=== PATIENT | female | born 1985 | race Hispanic/Latino ===

== ENCOUNTER 2018-08-06 07:36 | Emergency (ER) | payer SELFPAY ==
[2018-08-06 08:31] LABS: EOSINOPHILS % (AUTO) 4.8 % (0.0-8.0); HEMATOCRIT 41.5 % (36-48); MEAN CORPUSCULAR HEMOGLOBIN 30.6 pg (27.0-33.0); MEAN CORPUSCULAR HGB CONC 34.1 g/dL (32.0-36.0); MEAN CORPUSCULAR VOLUME 89.6 fL (79-99); MONOCYTES % (AUTO) 6.9 % (3.0-13.0); NEUTROPHILS % (AUTO) 65.3 % (40.0-77.0); NUCLEATED RED BLOOD CELLS 0.1 % (0.0-0.19); PLATELET COUNT (AUTO) 261 K/uL (130-400); RED BLOOD CELL COUNT(AUTO) 4.64 MIL/uL (4.00-5.50)
[2018-08-06 08:32] LABS: APPEARANCE,URINE Cloudy (CLEAR); BILIRUBIN,URINE Negative (NEGATIVE); COLOR,URINE Yellow (YELLOW); GLUCOSE, URINE (UA) Negative (NEGATIVE); KETONES,URINE Negative (NEGATIVE); LEUKOCYTE ESTERASE ,URINE Large (NEGATIVE); NITRATE,URINE Negative (NEGATIVE); OCCULT BLOOD,URINE Large (NEGATIVE); PROTEIN,URINE Negative (NEGATIVE); UROBILINOGEN,URINE 0.2 mg/dL (0.2-1.0)
[2018-08-06 08:39] LABS: BACTERIA,URINE Rare /HPF (None Seen); CREATININE 0.7 mg/dL (0.5-1.5); POTASSIUM 4.1 mmol/L (3.5-5.1); SQUAMOUS EPITHELIAL CELL,UR Rare /HPF (0-2); TRICHOMONAS,URINE Moderate /LPF (None Seen)
[2018-08-06 08:43] LABS: ALBUMIN 3.6 g/dL (3.5-5.0); BILIRUBIN,TOTAL 0.3 mg/dL (0.2-1.0); TOTAL PROTEIN, SERUM 7.6 g/dL (6.0-8.3)
[2018-08-06 08:45] LABS: HCG,QUAL RESULT NEGATIVE (NEGATIVE)
[2018-08-06] MEDS ORDERED: ONDANSETRON HCL 4 MG/2 ML VIAL ONE (10:04)
[2018-08-06] MEDS ORDERED: HYOSCYAMINE SULFATE 0.125 MG TAB.SUBL SL ONE (10:05)
== END 2018-08-06 10:39 | disposition home or self-care (01) ==
LOC: EDH 07:36
DX: K80.20 Calculus of gallbladder without cholecystitis without obstruction (principal); R03.0 Elevated blood-pressure reading, without diagnosis of hypertension
CPT/HCPCS: 36415; 76705; 80053; 81001; 81025; 82150; 83690; 85025; 87077; 87088; 87186; 96374; 99284; J2405

== ENCOUNTER 2019-05-23 14:22 | Emergency (ER) | payer SELFPAY ==
[2019-05-23 14:58] LABS: BASOPHILS % (AUTO) 0.5 % (0.0-5.0); EOSINOPHILS % (AUTO) 0.8 % (0.0-8.0); HEMATOCRIT 42.2 % (36-48); LYMPHOCYTES % (AUTO) 15.2 % (21.0-51.0); MEAN CORPUSCULAR HEMOGLOBIN 30.4 pg (27.0-33.0); MEAN CORPUSCULAR VOLUME 89.4 fL (79-99); MONOCYTES % (AUTO) 8.1 % (3.0-13.0); NEUTROPHILS % (AUTO) 75.4 % (40.0-77.0); PLATELET COUNT (AUTO) 269 K/uL (130-400); RED BLOOD CELL COUNT(AUTO) 4.72 MIL/uL (4.00-5.50); RED CELL DISTRIBUTION WIDTH 14.4 % (11.0-15.5); WHITE BLOOD COUNT (AUTO) 9.8 K/uL (4.8-10.8)
[2019-05-23 15:09] LABS: CREATININE 0.9 mg/dL (0.5-1.5); POTASSIUM 3.6 mmol/L (3.5-5.1)
[2019-05-23 15:14] LABS: ALBUMIN 3.7 g/dL (3.5-5.0); BILIRUBIN,TOTAL 0.5 mg/dL (0.2-1.0); TOTAL PROTEIN, SERUM 7.9 g/dL (6.0-8.3)
[2019-05-23] MEDS ORDERED: ONDANSETRON HCL 4 MG/2 ML VIAL ONE (15:46)
[2019-05-23] MEDS ORDERED: MORPHINE SULFATE 4 MG/1ML SYG ONE (15:46)
[2019-05-23] MEDS ORDERED: FAMOTIDINE/PF 20 MG/2 ML VIAL IV ONE (15:47)
[2019-05-23] MEDS ORDERED: SODIUM CHLORIDE 0.9% 1000ML 1,000 ML IV ONE (15:47)
[2019-05-23 16:07] LABS: APPEARANCE,URINE CLOUDY (CLEAR); BILIRUBIN,URINE MODERATE (NEGATIVE); COLOR,URINE YELLOW (YELLOW); GLUCOSE, URINE (UA) NEGATIVE (NEGATIVE); KETONES,URINE 40 mg/dL (NEGATIVE); LEUKOCYTE ESTERASE ,URINE SMALL (NEGATIVE); NITRATE,URINE NEGATIVE (NEGATIVE); OCCULT BLOOD,URINE NEGATIVE (NEGATIVE); PROTEIN,URINE 30 mg/dL (NEGATIVE)
[2019-05-23 16:15] LABS: HCG,QUAL RESULT NEGATIVE (NEGATIVE)
[2019-05-23 16:17] LABS: BACTERIA,URINE Few /HPF (None Seen); MUCUS,URINE Moderate LPF (None Seen); RBC,URINE 0-1 /HPF (0-1); SQUAMOUS EPITHELIAL CELL,UR Many /HPF (0-2); TRICHOMONAS,URINE Few /LPF (None Seen)
[2019-05-23] MEDS ORDERED: KETOROLAC TROMETHAMINE 30MG/ML ONE (17:02)
== END 2019-05-23 18:34 | disposition home or self-care (01) ==
LOC: EDH 14:22 → EEVIPCON 14:22 → EDH 18:34
DX: K80.50 Calculus of bile duct without cholangitis or cholecystitis without obstruction (principal); R11.2 Nausea with vomiting, unspecified
CPT/HCPCS: 36415; 80053; 81001; 81025; 82150; 83690; 85025; 96361; 96374; 96375; 99284; J1885; J2270; J2405; J3490; J7030

== ENCOUNTER 2019-08-21 17:47 | Emergency (ER) | payer OTHER ==
[2019-08-21] MEDS ORDERED: DEXAMETHASONE SOD PHOSPHATE 10MG/ML 1ML VIAL ONE (19:28)
== END 2019-08-21 20:29 | disposition home or self-care (01) ==
LOC: EDH 17:47
DX: J11.1 Influenza due to unidentified influenza virus with other respiratory manifestations (principal); J18.9 Pneumonia, unspecified organism
CPT/HCPCS: 71046; 87804 ×2; 96372; 99285; J1100

== ENCOUNTER 2019-10-22 15:29 | Inpatient (IN) | payer SELFPAY ==
[~2019-10-22] VITALS: Ht 165.1 cm; Wt 111.1 kg
[2019-10-22] MEDS ORDERED: ACETAMINOPHEN 325 MG TAB ONE (16:25)
[2019-10-22] MEDS ORDERED: SODIUM CHLORIDE 0.9% 1000ML 1,000 ML IV ONE (16:43)
[2019-10-22] MEDS ORDERED: ONDANSETRON HCL 4 MG/2 ML VIAL ONE (16:44)
[2019-10-22 16:48] LABS: BASOPHILS % (AUTO) 0.3 % (0.0-5.0); EOSINOPHILS % (AUTO) 0.6 % (0.0-8.0); HEMATOCRIT 36.5 % (36-48); LYMPHOCYTES % (AUTO) 6.5 % (21.0-51.0); MEAN CORPUSCULAR HEMOGLOBIN 26.9 pg (27.0-33.0); MEAN CORPUSCULAR HGB CONC 31.8 g/dL (32.0-36.0); MEAN CORPUSCULAR VOLUME 84.5 fL (79-99); MONOCYTES % (AUTO) 11.2 % (3.0-13.0); NEUTROPHILS % (AUTO) 80.9 % (40.0-77.0); PLATELET COUNT (AUTO) 260 K/uL (130-400); RED BLOOD CELL COUNT(AUTO) 4.32 MIL/uL (4.00-5.50); RED CELL DISTRIBUTION WIDTH 14.5 % (11.0-15.5); WHITE BLOOD COUNT (AUTO) 16.9 K/uL (4.8-10.8)
[2019-10-22 16:59] LABS: APPEARANCE,URINE Cloudy (CLEAR); BILIRUBIN,URINE Negative (NEGATIVE); COLOR,URINE Dark Yellow (YELLOW); GLUCOSE, URINE (UA) Negative (NEGATIVE); KETONES,URINE >=80 mg/dL (NEGATIVE); LEUKOCYTE ESTERASE ,URINE Moderate (NEGATIVE); NITRATE,URINE Positive (NEGATIVE); OCCULT BLOOD,URINE Large (NEGATIVE); PH,URINE 5.5 (5.0-8.0); PROTEIN,URINE POS 2+ mg/dL (NEGATIVE)
[2019-10-22 17:00] LABS: POTASSIUM 3.2 mmol/L (3.5-5.1)
[2019-10-22 17:02] LABS: HCG,QUAL RESULT NEGATIVE (NEGATIVE)
[2019-10-22 17:05] LABS: ALBUMIN 3.1 g/dL (3.5-5.0); BILIRUBIN,TOTAL 0.5 mg/dL (0.2-1.0); TOTAL PROTEIN, SERUM 7.7 g/dL (6.0-8.3)
[2019-10-22 17:13] LABS: RAPID GROUP A STREP NEGATIVE (NEGATIVE)
[2019-10-22] MEDS ORDERED: CEFTRIAXONE SODIUM 1 GM ONE (17:19)
[2019-10-22 17:23] LABS: BACTERIA,URINE Moderate /HPF (None Seen); MUCUS,URINE Few LPF (None Seen)
[2019-10-22] MEDS: POTASSIUM CHLORIDE 20 MEQ ERTAB PO SCH (19:30)
[2019-10-22] MEDS ORDERED: SODIUM CHLORIDE 0.9% 1000ML 1,000 ML IV SCH (19:30)
[2019-10-22] MEDS ORDERED: NITROGLYCERIN 0.4 MG SL TAB SL PRN (19:30)
[2019-10-22] MEDS ORDERED: DIPHENHYDRAMINE HCL 25 MG CAPSULE PO PRN (19:30)
[2019-10-22] MEDS ORDERED: ONDANSETRON HCL 4 MG/2 ML VIAL IV PRN (19:30)
[2019-10-22] MEDS ORDERED: IBUPROFEN 200 MG TAB ONE (20:16)
[2019-10-22] MEDS ORDERED: IBUPROFEN 400 MG TABLET ONE (20:16)
[2019-10-22] MEDS ORDERED: POTASSIUM BICARB/CIT AC 25 MEQ TABLET.EFF ONE (20:20)
[2019-10-22] MEDS: FAMOTIDINE/PF 20 MG/2 ML VIAL IV SCH (21:00)
[2019-10-22] MEDS ORDERED: FAMOTIDINE/PF 20 MG/2 ML VIAL IV ONE (21:13)
[2019-10-22] MEDS ORDERED: SODIUM CHLORIDE 0.9% 1000ML 2,000 ML IV ONE (21:13)
[2019-10-22] MEDS ORDERED: IOHEXOL 350 MG/ML 100ML INFUS..BTL IV ONE (22:40)
[2019-10-22 23:15] VITALS: BP 134/76
[2019-10-22 23:25] LABS: CRP QUANTITATIVE 205.5 mg/L (0.00-9.0)
[2019-10-22] MEDS: SODIUM CHLORIDE 0.9% 1000ML 1,000 ML IV SCH (23:54)
[2019-10-23 04:00] VITALS: BP 166/98
[2019-10-23] MEDS ORDERED: PHARMACY COMMUNICATION MISC SCH (04:45)
[2019-10-23] MEDS: SODIUM CHLORIDE 0.9% 1000ML 1,000 ML IV SCH ×2 (05:08→20:27)
[2019-10-23 05:29] LABS: HEMATOCRIT 30.8 % (36-48); MEAN CORPUSCULAR HEMOGLOBIN 26.7 pg (27.0-33.0); MEAN CORPUSCULAR HGB CONC 31.5 g/dL (32.0-36.0); MEAN CORPUSCULAR VOLUME 84.8 fL (79-99); PLATELET COUNT (AUTO) 200 K/uL (130-400); RED BLOOD CELL COUNT(AUTO) 3.63 MIL/uL (4.00-5.50); RED CELL DISTRIBUTION WIDTH 14.7 % (11.0-15.5); WHITE BLOOD COUNT (AUTO) 11.2 K/uL (4.8-10.8)
[2019-10-23 05:33] LABS: ALBUMIN 2.4 g/dL (3.5-5.0); BILIRUBIN,TOTAL 0.5 mg/dL (0.2-1.0); CREATININE 0.7 mg/dL (0.5-1.5); MAGNESIUM 1.8 mg/dL (1.80-2.40); POTASSIUM 3.4 mmol/L (3.5-5.1); TOTAL PROTEIN, SERUM 6.1 g/dL (6.0-8.3)
[2019-10-23] MEDS ORDERED: LIDOCAINE HCL-MPF 1% 2ML VIAL IV PRN (06:00)
[2019-10-23] MEDS ORDERED: POTASSIUM CHLORIDE 20MEQ/100ML 100 ML IV PRN (06:00)
[2019-10-23] MEDS ORDERED: POTASSIUM CHLORIDE 20 MEQ ERTAB PO PRN (06:00)
[2019-10-23] MEDS ORDERED: POTASSIUM CHLORIDE 10% ELIXIR 20 MEQ/15 ML UDCUP PO PRN (06:00)
[2019-10-23 06:11] LABS: BAND NEUTROPHILS % (MANUAL) 10 % (0-2); LYMPHOCYTES % (MANUAL) 6 % (22-44); MONOCYTES % (MANUAL) 4 % (2-9); SEGMENTED NEUTROPHILS % 80 % (40-70)
[2019-10-23 06:12] LABS: MAN.DIFF COMMENT-IMPRESSION MANUAL DIFFERENTIAL; PLATELET MORPHOLOGY COMMENT ADEQUATE
[2019-10-23 07:33] VITALS: BP 147/80
[2019-10-23] MEDS ORDERED: CEFTRIAXONE SODIUM 1 GM IV SCH (09:00)
--- NOTE | 2019-10-23 09:30 | NUR ---
DR. MADRIGAL CONSULT IN PLACE. RETURNED CALL.
[2019-10-23] MEDS: FAMOTIDINE/PF 20 MG/2 ML VIAL IV SCH ×2 (09:54→20:27)
[2019-10-23] MEDS: ZOSYN 3.375GM+NS 50ML 50 ML IV SCH ×3 (09:56→20:27)
[2019-10-23] MEDS: ACETAMINOPHEN 325 MG TAB PO PRN ×3 (09:57→20:31)
[2019-10-23 12:07] VITALS: BP 134/88
--- NOTE | 2019-10-23 13:59 | NUR ---
DR. JESSICA RETURNED CALL, LABS, IMAGING REPORT GIVEN, MAY SEE HER LATER TODAY OR EVEN IN AM BUT STATES IS ON RIGHT MEDS.
[2019-10-23] MEDS: MORPHINE SULFATE 2 MG/ML 1ML SYG IVP PRN (15:45)
[2019-10-23] MEDS: ENOXAPARIN SODIUM 30 MG/0.3 ML SQ SCH (15:46)
[2019-10-23 16:58] VITALS: BP 131/79
--- NOTE | 2019-10-23 18:08 | NUR ---
D/C PLAN CM spoke to pt regarding d/c planning. Pt is ind. and lives with children. CM provided community resources packet. Plan to home. No needs verbalized or identified. CM to f/u. Addendum: 10/23/19 at 1809 by SIMRAN DUBOSE CM Amended: Links added.
[2019-10-23] MEDS: POTASSIUM CHLORIDE 20 MEQ ERTAB PO SCH (19:30)
[2019-10-23 19:33] VITALS: BP 144/88
[2019-10-23 23:36] VITALS: BP 148/99
[2019-10-24] MEDS: SODIUM CHLORIDE 0.9% 1000ML 1,000 ML IV SCH ×3 (01:46→21:42)
[2019-10-24 03:46] VITALS: BP 150/96
[2019-10-24] MEDS: ACETAMINOPHEN 325 MG TAB PO PRN ×3 (03:47→22:03)
[2019-10-24] MEDS: ZOSYN 3.375GM+NS 50ML 50 ML IV SCH ×2 (03:49→12:55)
[2019-10-24 05:57] LABS: BASOPHILS % (AUTO) 0.3 % (0.0-5.0); EOSINOPHILS % (AUTO) 0.5 % (0.0-8.0); HEMATOCRIT 31.6 % (36-48); MEAN CORPUSCULAR HEMOGLOBIN 27.1 pg (27.0-33.0); MEAN CORPUSCULAR HGB CONC 31.6 g/dL (32.0-36.0); MEAN CORPUSCULAR VOLUME 85.6 fL (79-99); MONOCYTES % (AUTO) 17.1 % (3.0-13.0); NEUTROPHILS % (AUTO) 68.6 % (40.0-77.0); PLATELET COUNT (AUTO) 236 K/uL (130-400); RED BLOOD CELL COUNT(AUTO) 3.69 MIL/uL (4.00-5.50); RED CELL DISTRIBUTION WIDTH 14.6 % (11.0-15.5); WHITE BLOOD COUNT (AUTO) 9.1 K/uL (4.8-10.8)
[2019-10-24 06:22] LABS: CREATININE 0.8 mg/dL (0.5-1.5); POTASSIUM 3.9 mmol/L (3.5-5.1)
[2019-10-24 08:00] VITALS: BP 158/99
[2019-10-24] MEDS: MORPHINE SULFATE 2 MG/ML 1ML SYG IVP PRN (09:08)
[2019-10-24] MEDS: FAMOTIDINE/PF 20 MG/2 ML VIAL IV SCH ×2 (09:08→21:29)
--- NOTE | 2019-10-24 10:20 | NUR ---
DR. FALL SPOKE TO MD VIA TELEPHONE. INFORMED MD OF PRELIMINARY URINE CULTURE RESULTS, ANTIBIOTIC, ELEVATED TEMPERATURE TRENDS THE PAS [address] FALL STATES THAT IT APPEARS PATIENT HAS PYELONEPHRITIS AND THAT PATIENT IS ON CURRENT ANTIBIOTICS AT THIS TIME. ALSO STATES SHE WOULD BE IN TO SEE PATIENT LATER TODAY.
[2019-10-24 10:50] VITALS: BP 143/96
[2019-10-24 15:09] VITALS: BP 158/99
[2019-10-24] MEDS: MEROPENEM 1 GM VIAL IVP SCH (18:36)
[2019-10-24] MEDS: ENOXAPARIN SODIUM 30 MG/0.3 ML SQ SCH (18:36)
[2019-10-24] MEDS: POTASSIUM CHLORIDE 20 MEQ ERTAB PO SCH (19:30)
[2019-10-24 20:17] VITALS: BP 139/97
[2019-10-24 23:38] VITALS: BP 148/85
[2019-10-25] VITALS (7 sets, daily range): BP systolic 130–161; BP diastolic 80–113
[2019-10-25] MEDS: MEROPENEM 1 GM VIAL IVP SCH ×3 (01:41→18:13)
[2019-10-25] MEDS: FAMOTIDINE/PF 20 MG/2 ML VIAL IV SCH ×2 (10:12→21:55)
[2019-10-25] MEDS ORDERED: AMLODIPINE BESYLATE 5 MG TAB PO SCH (14:15)
[2019-10-25] MEDS: ACETAMINOPHEN 325 MG TAB PO PRN (14:39)
[2019-10-25] MEDS: SODIUM CHLORIDE 0.9% 1000ML 1,000 ML IV SCH ×2 (14:43→17:28)
[2019-10-25] MEDS: ENOXAPARIN SODIUM 30 MG/0.3 ML SQ SCH (18:14)
[2019-10-26] MEDS: MEROPENEM 1 GM VIAL IVP SCH ×2 (02:55→10:18)
[2019-10-26] MEDS: SODIUM CHLORIDE 0.9% 1000ML 1,000 ML IV SCH ×2 (03:05→13:28)
[2019-10-26 03:38] VITALS: BP 154/89
[2019-10-26 06:31] LABS: BASOPHILS % (AUTO) 0.7 % (0.0-5.0); EOSINOPHILS % (AUTO) 3.7 % (0.0-8.0); HEMATOCRIT 31.6 % (36-48); LYMPHOCYTES % (AUTO) 31.9 % (21.0-51.0); MEAN CORPUSCULAR HEMOGLOBIN 27.1 pg (27.0-33.0); MEAN CORPUSCULAR HGB CONC 32.3 g/dL (32.0-36.0); MEAN CORPUSCULAR VOLUME 83.8 fL (79-99); MONOCYTES % (AUTO) 9.7 % (3.0-13.0); NEUTROPHILS % (AUTO) 53.5 % (40.0-77.0); PLATELET COUNT (AUTO) 310 K/uL (130-400); RED BLOOD CELL COUNT(AUTO) 3.77 MIL/uL (4.00-5.50); RED CELL DISTRIBUTION WIDTH 14.6 % (11.0-15.5); WHITE BLOOD COUNT (AUTO) 7.3 K/uL (4.8-10.8)
[2019-10-26 06:38] LABS: CREATININE 0.7 mg/dL (0.5-1.5)
[2019-10-26 08:00] VITALS: BP 148/103
[2019-10-26] MEDS ORDERED: AMLODIPINE BESYLATE 5 MG TAB PO SCH ×2 (09:00→13:30)
[2019-10-26] MEDS: FAMOTIDINE/PF 20 MG/2 ML VIAL IV SCH (10:17)
[2019-10-26 12:00] VITALS: BP 156/100
[2019-10-26] MEDS ORDERED: CEPH500B PO (14:02)
[2019-10-26] MEDS ORDERED: AMLO10TA7 PO (14:02)
--- NOTE | 2019-10-26 14:54 | NUR ---
PATIENT GIVEN DISCHARGE INSTRUCTIONS, AND VERBALIZED UNDERSTANDING, REVIEWED MEDICATIONS , NEED TO FIND A PRIMARY PHYSICIAN ( LIST OF PHYSICIAN GIVEN). IV REMOVED WITH CATHETER INTACT AND SITE DRESSED, PATIENT DENIES PAIN AT THIS TIME, WORK EXCUSE GIVEN , PATIENT CLEAR TO RETURN TO WORK ON ThursdayOctober. NO QUESTIONS OR CONCERNS AT THIS TIME PATIENT TAKING BY WHEELCHAIR TO ER LOBBY WITH FRIEND AT SIDE
[2019-10-27] MEDS ORDERED: AMLODIPINE BESYLATE 5 MG TAB PO SCH (09:00)
== END 2019-10-26 15:00 | disposition home or self-care (01) | DRG 872 ==
LOC: EDH 15:29 → EDHIP 15:30 → EDH 16:53 → 3AH 23:45
PROVIDERS: ADMIT Hospitalist; ATTEND Hospitalist
DX: A41.51 Sepsis due to Escherichia coli [E. coli] (principal); E87.1 Hypo-osmolality and hyponatremia; N13.6 Pyonephrosis; Z68.41 Body mass index [BMI] 40.0-44.9, adult; E66.01 Morbid (severe) obesity due to excess calories; E87.6 Hypokalemia; I10 Essential (primary) hypertension
CPT/HCPCS: 36415; 74176; 80048; 80053; 81001; 81025; 83605; 83735; 84145; 85025; 85651; 86140; 87040; 87077; 87088; 87186; 87804; 87880; G0378; J0696; J1650; J2185; J2405; J2543; J3490; J7030; Q9967

== ENCOUNTER 2021-11-07 13:09 | Emergency (ER) | payer OTHER ==
[~2021-11-07] VITALS: Ht 170.2 cm; Wt 127.0 kg
[~2021-11-07 13:09] MED LIST: AMLO-258 PO; CEPH500B PO
[2021-11-07] MEDS ORDERED: ASPIRIN 325MG TAB PO ONE (13:30)
[2021-11-07] MEDS ORDERED: ACETAMINOPHEN 500 MG TABLET PO ONE (13:30)
[2021-11-07 13:46] LABS: BASOPHILS % (AUTO) 1.1 % (0.0-5.0); EOSINOPHILS % (AUTO) 2.5 % (0.0-8.0); HEMATOCRIT 37.4 % (36-48); LYMPHOCYTES % (AUTO) 25.5 % (21.0-51.0); MEAN CORPUSCULAR HEMOGLOBIN 25.4 pg (27.0-33.0); MEAN CORPUSCULAR VOLUME 81.8 fL (79-99); NEUTROPHILS % (AUTO) 62.6 % (40.0-77.0); PLATELET COUNT (AUTO) 342 K/uL (130-400); RED BLOOD CELL COUNT(AUTO) 4.57 MIL/uL (4.00-5.50); RED CELL DISTRIBUTION WIDTH 16.1 % (11.0-15.5); WHITE BLOOD COUNT (AUTO) 9.1 K/uL (4.8-10.8)
[2021-11-07] MEDS ORDERED: NIFEDIPINE 10 MG CAP PO ONE (14:00)
[2021-11-07 14:10] LABS: CREATININE 0.7 mg/dL (0.5-1.5); POTASSIUM 3.9 mmol/L (3.5-5.1)
[2021-11-07 14:15] LABS: ALBUMIN 3.8 g/dL (3.5-5.0); BILIRUBIN,TOTAL 0.2 mg/dL (0.2-1.0); TOTAL PROTEIN, SERUM 7.7 g/dL (6.0-8.3)
[2021-11-07 14:22] LABS: APPEARANCE,URINE TURBID (CLEAR); BILIRUBIN,URINE SMALL (NEGATIVE); COLOR,URINE RED (YELLOW); GLUCOSE, URINE (UA) NEGATIVE (NEGATIVE); KETONES,URINE 5 mg/dL (NEGATIVE); LEUKOCYTE ESTERASE ,URINE TRACE (NEGATIVE); NITRATE,URINE NEGATIVE (NEGATIVE); OCCULT BLOOD,URINE LARGE (NEGATIVE); PROTEIN,URINE 100 mg/dL (NEGATIVE)
[2021-11-07 14:27] LABS: HCG,QUAL RESULT NEGATIVE (NEGATIVE)
[2021-11-07 14:39] LABS: RBC,URINE TNTC /HPF (0-1)
[2021-11-07 14:40] LABS: BACTERIA,URINE Rare /HPF (None Seen); SQUAMOUS EPITHELIAL CELL,UR Rare /HPF (0-2)
[2021-11-07 14:52] VITALS: BP 119/66
== END 2021-11-07 15:29 | disposition home or self-care (01) ==
LOC: EDH 13:09
DX: R07.89 Other chest pain (principal); I10 Essential (primary) hypertension; Z79.82 Long term (current) use of aspirin; E66.9 Obesity, unspecified; Z68.41 Body mass index [BMI] 40.0-44.9, adult
CPT/HCPCS: 36415; 71045; 80053; 81001; 81025; 83690; 84484; 85025; 93005

== ENCOUNTER 2022-09-29 16:29 | Emergency (ER) | payer OTHER ==
[~2022-09-29] VITALS: Ht 170.2 cm; Wt 136.1 kg
[2022-09-29 16:53] VITALS: BP 156/92
[2022-09-29 17:54] LABS: BASOPHILS % (AUTO) 0.7 % (0.0-5.0); EOSINOPHILS % (AUTO) 3.7 % (0.0-8.0); HEMATOCRIT 35.8 % (36-48); LYMPHOCYTES % (AUTO) 23.5 % (21.0-51.0); MEAN CORPUSCULAR HGB CONC 31.6 g/dL (32.0-36.0); MEAN CORPUSCULAR VOLUME 82.3 fL (79-99); MONOCYTES % (AUTO) 7.3 % (3.0-13.0); NEUTROPHILS % (AUTO) 64.4 % (40.0-77.0); PLATELET COUNT (AUTO) 256 K/uL (130-400); RED BLOOD CELL COUNT(AUTO) 4.35 MIL/uL (4.00-5.50); RED CELL DISTRIBUTION WIDTH 15.8 % (11.0-15.5)
[2022-09-29 18:05] LABS: CREATININE 0.6 mg/dL (0.5-1.5); POTASSIUM 3.8 mmol/L (3.5-5.1)
[2022-09-29 18:10] LABS: ALBUMIN 3.6 g/dL (3.5-5.0); TOTAL PROTEIN, SERUM 7.1 g/dL (6.0-8.3)
[2022-09-29] MEDS ORDERED: KETOROLAC 15MG/ML VIAL (15MG/ML) IV ONE (19:30)
[2022-09-29] MEDS ORDERED: PROCHLORPERAZINE 10MG/2ML INJ IV ONE (19:30)
[2022-09-29] MEDS ORDERED: DiphenhydrAMINE HCL 50 MG/ML VIAL IV ONE (19:30)
[2022-09-29] MEDS ORDERED: 0.9%NACL 1000ML 1,000 ML IV ONE (19:30)
[2022-09-29 20:17] LABS: APPEARANCE,URINE CLEAR (CLEAR); BILIRUBIN,URINE NEGATIVE (NEGATIVE); COLOR,URINE LIGHT-YELLOW (YELLOW); GLUCOSE, URINE (UA) NEGATIVE (NEGATIVE); KETONES,URINE 5 mg/dL (NEGATIVE); LEUKOCYTE ESTERASE ,URINE 75 Leu/uL (NEGATIVE); NITRATE,URINE NEGATIVE (NEGATIVE); OCCULT BLOOD,URINE LARGE (NEGATIVE); PROTEIN,URINE 10 mg/dL (NEGATIVE); UROBILINOGEN,URINE 0.2 mg/dL (0.2-1.0)
[2022-09-29 20:21] LABS: MUCUS,URINE RARE LPF (None Seen); SQUAMOUS EPITHELIAL CELL,UR RARE /HPF (0-2); YEAST,URINE BUDDING RARE /HPF (None Seen)
[2022-09-29 20:23] LABS: HCG,QUALITATIVE URINE NEGATIVE (NEGATIVE)
[2022-09-29] MEDS ORDERED: CEPH500B PO (20:54)
== END 2022-09-29 21:18 | disposition home or self-care (01) ==
LOC: EDH 16:29
DX: N39.0 Urinary tract infection, site not specified (principal); R51.9 Headache, unspecified; I10 Essential (primary) hypertension; E66.9 Obesity, unspecified; Z20.822 Contact with and (suspected) exposure to COVID-19
CPT/HCPCS: 99284; 96374; 96375; 87635; 96361; 80053; 85025; 87088; 87804 ×2; 81001; 81025; 36415; C9803; J1200; J0780; J1885